=== PATIENT | female | born 1975 | race African-American/Black ===

== ENCOUNTER 2020-06-14 11:58 | Emergency (ER) | payer MEDICAID ==
[~2020-06-14] VITALS: Ht 170.2 cm; Wt 90.0 kg
[~2020-06-14 11:58] MED LIST: AMLO2.5T45 PO; ATOR10TA PO; BENGAY TOP; CYCL10TA7 PO; DOCU100T MT; GABA-529 PO; METO25TA6 PO; TOPUD PO
[2020-06-14] MEDS ORDERED: KETOROLAC 30MG/ML VIAL IM ONE (14:30)
[2020-06-14] MEDS ORDERED: DIAZEPAM 5 MG TABLET PO SCH (15:15)
[2020-06-14] MEDS ORDERED: DIAZ10TA MT (17:09)
[2020-06-14] MEDS ORDERED: LIDO700A15 TP (17:10)
[2020-06-14 18:15] VITALS: BP 142/92
== END 2020-06-14 17:25 | disposition home or self-care (01) ==
LOC: ER 11:58
DX: G89.29 Other chronic pain (principal); M54.5 Low back pain; Z91.81 History of falling
CPT/HCPCS: 96372; 99283; J1885

== ENCOUNTER 2020-11-29 13:33 | Emergency (ER) | payer SELFPAY ==
[~2020-11-29] VITALS: Ht 165.1 cm; Wt 99.0 kg
[~2020-11-29 13:33] MED LIST changes: +LIDO700A15 TP
[2020-11-29] MEDS ORDERED: DIAZEPAM 2 MG TABLET PO ONE (15:00)
[2020-11-29] MEDS ORDERED: KETOROLAC 60MG/2ML VIAL IM ONE (15:00)
[2020-11-29 15:22] VITALS: BP 179/96
== END 2020-11-29 16:47 | disposition home or self-care (01) ==
LOC: ER 13:33
DX: M54.5 Low back pain (principal)
CPT/HCPCS: 96372; 99283; J1885

== ENCOUNTER 2021-03-11 15:50 | Emergency (ER) | payer MEDICAID ==
[~2021-03-11] VITALS: Ht 170.2 cm; Wt 82.0 kg
[2021-03-11 18:59] LABS: CHLORIDE 110 mEq/L (98-107)
[2021-03-11 19:02] LABS: BASOPHILS % 1.4 % (0.0-2.0); EOSINOPHILS % 0.3 % (0.0-5.0); HEMOGLOBIN. 10.4 g/dL (12.0-16.0); MEAN CORPUSCULAR VOLUME 73.8 fL (81.0-99.0); MONOCYTES % 8.3 % (2.0-8.0); RED BLOOD CELL COUNT 4.75 mill/uL (4.2-5.4)
[2021-03-11 19:12] LABS: HCG SCREEN NEGATIVE
[2021-03-11 20:14] LABS: MEAN PLATELET VOLUME 9.2 fl (7.4-10.4); PLATELET 55 x1000/uL (130-400)
[2021-03-11 20:15] LABS: PLATELET ESTIMATE MARKEDLY DECREASED
[2021-03-11] MEDS ORDERED: MORPHINE SULFATE 4 MG/ML CPJ (NOT FOR IM USE) IV ONE (21:45)
[2021-03-11] MEDS ORDERED: ATEN-42 MT (21:47)
[2021-03-11] MEDS ORDERED: GABA-529 MT (21:47)
[2021-03-11] MEDS ORDERED: HYDR-4001 MT (21:47)
[2021-03-11 21:57] VITALS: BP 182/107
[2021-03-11] MEDS ORDERED: ONDANSETRON 4MG ODT PO ONE (22:00)
== END 2021-03-11 22:05 | disposition home or self-care (01) ==
LOC: ER 15:50
DX: S39.012A Strain of muscle, fascia and tendon of lower back, initial encounter (principal); I10 Essential (primary) hypertension; Z76.0 Encounter for issue of repeat prescription; Z79.899 Other long term (current) drug therapy; Z86.39 Personal history of other endocrine, nutritional and metabolic disease; X58.XXXA Exposure to other specified factors, initial encounter; Y93.89 Activity, other specified; Y92.89 Other specified places as the place of occurrence of the external cause; Y99.8 Other external cause status
CPT/HCPCS: 36415; 71045; 80053; 84703; 85025; 93005; 96374; 99285; J2270; Q0162